=== PATIENT | female | born 1990 | race Caucasian/White ===

== ENCOUNTER 2017-05-29 23:05 | Observation (INO) ==
--- NOTE | 2017-05-29 23:25 | Emergency Department Note ---
Disposition Clinical Impression: Cellulitis and abscess of face Disposition: Admitted As Inpatient Condition: Fair Referrals: NONE,PCP [Primary Care Provider] - Forms: ED Satisfaction Letter Skin/Abscess/FB HPI Chief complaint: ED Skin/Abscess/Foreign Body Stated complaint: staff infection Time Seen by Provider: 05/29/17 23:17 Source: patient Limitations: no limitations HPI Narrative: Patient reports starting with a pimple 2 days ago. She tried to squeeze it and progressive swelling has resulted. She was evaluated yesterday PM with an attempted I & D with placement of plain packing. She was started on keflex, bactrim and hydrocodone. She filled the prescriptions and started them at 1400 today. Prior to arrival to the ED she had a gush of purulent drainage from the incision but swelling has continued. She states the swelling has caused her left eye to be shut and that gives her anxiety. She denies increased pain. She denies fever, chills, nausea or sweats. She has no other areas for redness or swelling and no ill exposures. She reports a mild feeeling of shortness of breath from her "anxiety". Her LMP was ended yesterday and she denies chance of . Pt Subjective Complaint: abscess/boil Onset (ago): day(s) Tetanus Up to Date: yes Location: face Severity: moderate Quality: aching, dull Consistency: Worsening Improves with: none Worsens with: none Associated symptoms: Denies: fever, chills, rigors, itching, nausea, vomiting, malaise, arthralgias, myalgias, cough, shortness of breath Treatments prior to arrival: attempted to drain pus at home, antibiotic, prescription analgesic, other (I&D 24 hours ago) Previous Rx's Medication Instructions Recorded Cephalexin [Keflex] 500 mg PO TID #21 capsule 05/28/17 HYDROcodone/Acet 5/325 mg [[place] 1 tab PO Q4H PRN #12 tab 05/28/17 5-325 mg] Sulfamethoxazole/Trimeth DS 1 each PO BID #14 tablet 05/28/17 [Bactrim DS] Allergies Allergy/AdvReac Type Severity Reaction Status Date / Time No Known Allergies Allergy Verified 05/29/17 23:11 All systems ED: reviewed and negative except as stated. Past Medical History - Past Medical History Attestation: Yes The following information was validated with the patient. 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 right eye swelled shut.) - Eye Eye exam: Present: PERRL, EOMI. Absent: scleral icterus, conjunctival injection - ENT ENT exam: normal exam, normal oropharynx, mucous membranes moist, TM's normal bilaterally - Neck Neck exam: Present: normal inspection, full ROM, trachea midline. Absent: tenderness, meningismus, lymphadenopathy - Chest Chest inspection: Present: normal inspection, symmetric chest wall rise. Absent : tenderness - Respiratory Respiratory exam: Present: normal lung sounds bilaterally. Absent: respiratory distress, wheezes, prolonged expiratory phase - Cardiovascular Cardiovascular exam: Present: regular rate, normal rhythm, tachycardia, normal heart sounds - Abdominal Exam Abdominal exam: Present: soft, Non-Tender. Absent: tenderness, distention, guarding, rebound, rigidity - Extremities Exam Extremities exam: Present: normal inspection, full ROM, normal capillary refill. Absent: tenderness - Expanded Lower Extremity Exam Neurovascular/Tendon exam: Present: normal capillary refill. Absent: motor deficit, sensory deficit, tendon deficit Gait: observed and normal - Neurological Exam Neurological exam: Present: alert, oriented X3 - Psychiatric Psychiatric exam: Present: normal affect, normal mood - Skin Skin exam: Present: warm, dry, intact, normal color. Absent: diaphoresis, pallor Course Course Narrative: 0050: With return of lab and imaging results, care has been discussed with the patient. Given the small area of possible abscess with prominent surrounding cellulitis I believe continuation of IV antibiotics would be prudent. Given the deep-seated and small area of abscess I do not believe instrumentation again in this emergency department will be beneficial. I have placed a page to the head machine feeder senior information systems architect to discuss ongoing treatment and further antibiotic coverage. 0053: Dr Bailon of ENT requests transfer to [facility] under the hospitalist service with a consult to him. He recommends continuation of the vancomycin and he will evaluate for bedside incision and drainage in the morning with cultures that time. 0100: A page has been placed for Dr. Gandhi for consideration of transfer to the hospitalist service. 0255: I received a call from bed management and [facility]. Due to acuity and volume the hospitalist will not be able to accept any further patients until morning. The patient is already quite hesitant to go as far as [facility] and is unwilling to do a transfer to a more distant hospital. I have contacted our hospitalist, Dr. Meeks, who is agreeable to observation at this facility pending a transfer to [facility]. I did explain that she will likely need incision and drainage by ENT and that Dr. Bailon of [facility] ENT is anticipating a consult on this patient for his intervention. I have placed a call back to [facility] bed management and they have placed her on the hold list to work on a bed later this morning. Orders have been taken from Dr. Meeks and we are awaiting bed placement at this facility at this time. Vital Signs Temperature 97.0 F L 05/29/17 23:13 Pulse Rate 128 05/29/17 23:13 Respiratory Rate 16 05/29/17 23:13 Blood Pressure 127/83 05/29/17 23:13 O2 Sat by Pulse Oximetry 98 05/29/17 23:13 Temperature 97.0 F L 05/29/17 23:13 Pulse Rate 128 05/29/17 23:13 Respiratory Rate 16 05/29/17 23:13 Blood Pressure 127/83 05/29/17 23:13 O2 Sat by Pulse Oximetry 98 05/29/17 23:13 Oxygen Delivery Oxygen Delivery Room Air Skin/Abscess/Foreign Body - Differential Diagnosis Likely: abscess of skin or subcutaneous tissue, cellulitis - Medical Records Medical records reviewed: Yes I reviewed the patient's medical records. - Lab Data Lab results reviewed: Yes I reviewed the patient's lab results. Result diagrams: 05/29/17 23:25 05/29/17 23:25 Lab Results 05/29/17 05/29/17 05/29/17 Range/Units 23:23 23:25 23:25 WBC 14.2 H (4.3-11.1) K/mcL RBC 4.41 (3.82-4.97) M/mcL Hgb 13.1 (11.5-15.4) g/dL Hct 40.2 (35.3-44.9) % MCV 91.2 (83.0-100.0) fL MCH 29.7 (28.0-33.3) pg MCHC 32.6 (31.6-35.5) g/dL RDW 13.2 (11.5-14.5) % Plt Count 284 (140-400) K/mcL MPV 9.9 (9.4-12.4) fL Immature Gran % 0.4 (0-4) % Seg Neutrophils % 72.0 % Lymphocytes % 18.1 % Monocytes % 8.2 % Eosinophils % 1.1 % Basophils % 0.2 % Neutrophils # 10.2 H (1.6-8.9) K/mcL Lymphocytes # 2.6 (0.6-4.6) K/mcL Monocytes # 1.2 (0.0-1.3) K/mcL Eosinophils # 0.2 (0.0-0.6) K/mcL Basophils # 0.0 (0.0-0.2) K/mcL Sodium 137 (136-145) mEq/L Potassium 3.1 L (3.5-5.1) mEq/L Chloride 100 (98-107) mEq/L Carbon Dioxide 28 (23-29) mEq/L BUN 6 (6-20) mg/dL Creatinine 0.64 (0.60-1.20) mg/dL Est GFR ( Amer) > 60 (> 60) Est GFR (Non-Af Amer) > 60 (> 60) BUN/Creatinine Ratio 9 (6-26) Glucose 167 H (70-105) mg/dL Calculated Osmolality 285 (280-300) Calcium 9.5 (8.6-10.3) mg/dL Urine Test Negative (Negative) - Radiology Data Radiology results reviewed: Yes I reviewed the patient's radiology results. Maxillofacial CT is been performed. This demonstrates prominent right malar and periorbital swelling that extends up into the right temporal region. Deep in the right malar region that appears to be a small loculated area of probable abscess. This is on my interpretation. Impressions Face CT 05/29/17 23:23 IMPRESSION: Extensive right facial and right periorbital soft tissue swelling/ cellulitis. There is a 2 cm x 9 mm subtle low-attenuation area in the central portion of the right facial cellulitis suspicious for developing abscess. D/ / Prosper Richardson MD / Prosper Richardson MD Interpreting Provider: Prosper Richardson MD
[2017-05-29 23:38] LABS: Basophils % 0.2 %; Eosinophils # 0.2 K/mcL (0.0-0.6); Eosinophils % 1.1 %; Hematocrit 40.2 % (35.3-44.9); Hemoglobin 13.1 g/dL (11.5-15.4); Immature Granulocytes % 0.4 % (0-4); Lymphocytes # 2.6 K/mcL (0.6-4.6); Lymphocytes % 18.1 %; Mean Corpuscular HGB Conc 32.6 g/dL (31.6-35.5); Mean Corpuscular Hemoglobin 29.7 pg (28.0-33.3); Mean Corpuscular Volume 91.2 fL (83.0-100.0); Mean Platelet Volume 9.9 fL (9.4-12.4); Monocytes # 1.2 K/mcL (0.0-1.3); Monocytes % 8.2 %; Neutrophils # 10.2 K/mcL (1.6-8.9); Platelet Count 284 K/mcL (140-400); Red Blood Count 4.41 M/mcL (3.82-4.97); Red Cell Distribution Width 13.2 % (11.5-14.5)
[2017-05-29] MEDS: 0.9 % Sodium Chloride 500 ML IVC ONE (23:41)
[2017-05-29] MEDS: Vancomycin 1,000 MG in D5% in Water 250 ML IVPB ONE (23:42)
[2017-05-29 23:55] LABS: BUN/Creatinine Ratio 9 (6-26); Blood Urea Nitrogen 6 mg/dL (6-20); Calcium 9.5 mg/dL (8.6-10.3); Carbon Dioxide 28 mEq/L (23-29); Chloride 100 mEq/L (98-107); Glucose 167 mg/dL (70-105); Osmolality,Calculated 285 (280-300); Potassium 3.1 mEq/L (3.5-5.1); Sodium 137 mEq/L (136-145); eGFR For African Americans > 60 (> 60); eGFR For Non-African Americans > 60 (> 60)
[2017-05-30] MEDS: *HR* LORazepam 2 MG/ML VIAL IVP ONE (01:00)
[2017-05-30] MEDS: 0.9 % Sodium Chloride 1,000 ML IVC SCH ×2 (01:46→04:54)
[2017-05-30] MEDS ORDERED: *HR* OxyCODONE Immed Rel 5 MG TABLET PO PRN (04:05)
[2017-05-30] MEDS ORDERED: Ondansetron 4 MG/2 ML VIAL IVP PRN (04:05)
[2017-05-30] MEDS ORDERED: Naloxone 0.4 MG/ML INJ IVP PRN (04:05)
[2017-05-30] MEDS ORDERED: Ibuprofen 400 MG TABLET PO PRN (04:05)
[2017-05-30 08:32] VITALS: BP 116/65
[2017-05-30] MEDS: *HR* LORazepam 2 MG/ML VIAL IVP PRN (09:53)
[2017-05-30] MEDS: Nicotine 21 MG PATCH.TD24 TD SCH (09:54)
[2017-05-30] MEDS ORDERED: Vancomycin 1,000 MG in D5% in Water 250 ML IVPB SCH (12:00)
--- NOTE | 2017-05-30 13:31 | Internal Med History&Physical ---
Date of Encounter: 05/30/17 Time of Encounter: 13:30 Assessment and Plan (1) Facial abscess Current visit: Yes Status: Acute Transferred. Internal Medicine - H&P: HPI Chief complaint: Facial abscess Admitted From: Home Plans for Post Hospital Care: Transfer Other History of present illness: Ms. Barbie Mcclure is a 26 year old female admitted by ED due to no bed availability where she could be treated by a facial surgeon. Was admited here for antibiotics and acute care. Bed became available at [facility] and she was transferred for appropriate care before I could evaluate her. Past Med Surg Social Fam HX - Past Medical History Medical history: no medical history Psychiatric history: no psych history - Past Surgical History Surgical History: - Social History Smoking Status: Current every day smoker Smokeless Tobacco Status: No Alcohol use: occasionally Drug use: opiates, methamphetamine, IV Drug Use - Family History Mother Hx Family Respiratory Disorders: Yes (Asthma) Father Hx Family Cardiac Disorders: Yes (HTN) Internal Medicine - H&P: Meds Cephalexin [Keflex] 500 mg PO TID #21 capsule 05/28/17 [Rx] HYDROcodone/Acet 5/325 mg [[place] 5-325 mg] 1 tab PO Q4H PRN #12 tab 05/28/17 [Rx ] Sulfamethoxazole/Trimeth DS [Bactrim DS] 1 each PO BID #14 tablet 05/28/17 [Rx] 3 Allergy/AdvReac Type Severity Reaction Status Date / Time No Known Allergies Allergy Verified 05/29/17 23:11 All Systems PM: A 10-system review of systems was performed and is negative for pertinent findings except as documented above in the HPI. - Constitutional Vitals: Temp Pulse Resp BP Pulse Ox 98.4 F 82 18 116/65 96 05/30/17 08:00 05/30/17 08:00 05/30/17 08:00 05/30/17 08:00 05/30/17 08:00 Exam: None Internal Med - H&P Results - Labs CBC & Chem 7: 05/29/17 23:25 05/29/17 23:25
--- NOTE | 2017-05-30 13:35 | Discharge Summary ---
Date of Encounter: 05/30/17 Time of Encounter: 13:30 - Discharge Diagnosis (1) Facial abscess Priority: Primary Status: Acute - Discharge Medications Home Medications: Cephalexin [Keflex] 500 mg PO TID #21 capsule 05/28/17 [Rx] HYDROcodone/Acet 5/325 mg [[place] 5-325 mg] 1 tab PO Q4H PRN #12 tab 05/28/17 [Rx ] Sulfamethoxazole/Trimeth DS [Bactrim DS] 1 each PO BID #14 tablet 05/28/17 [Rx] Allergies/Adverse Reactions: 3 Allergy/AdvReac Type Severity Reaction Status Date / Time No Known Allergies Allergy Verified 05/29/17 23:11 Date of admission: 05/30/17 03:25 Primary care physician: PCP NONE - Patient Status Disposition: Transfer Critical Access Hosp Condition: Fair - Discharge Instructions Follow Up With: NONE,PCP [Primary Care Provider] - Interval History: Patient was admitted with a facial abscess. Admitted here because a bed was not available where she could be seen by a facial surgeon. That bed became available and patient was transferred for appropriate care before she could be seen by me. Hospital course: Ms. Barbie Mcclure is a 26 year old female - Time Spent with Patient Total time spent providing and/or coordinating discharge services: - Constitutional Vitals: Temp Pulse Resp BP Pulse Ox 98.4 F 82 18 116/65 96 05/30/17 08:00 05/30/17 08:00 05/30/17 08:00 05/30/17 08:00 05/30/17 08:00 Exam: None
== END 2017-05-30 10:27 | disposition short-term general hospital (02) ==
LOC: EMEROOGRE 23:05 → INPGRE 23:05